=== PATIENT | male | born 1985 | race Caucasian/White ===

== ENCOUNTER → 2019-09-14 16:27 | Outpatient (CLI) | payer OTHER, SELFPAY ==
[2019-09-14 16:42] LABS: Bacteria Urine None Seen
[2019-09-14 17:43] LABS: INR 0.9 (0.9-1.3); Prothrombin Time 10.8 SECONDS (10.1-12.7)
[2019-09-14 18:33] LABS: Appearance Urine UA CLEAR; Bilirubin Urine UA NEGATIVE (NEGATIVE); Color Urine UA YELLOW; Glucose Urine UA NEGATIVE (Negative); Ketones Urine UA NEGATIVE (NEGATIVE); Leukocyte Esterase Urine UA NEGATIVE (NEGATIVE); Nitrite Urine UA NEGATIVE (Negative); Occult Blood Urine UA NEGATIVE (Negative); Protein Urine UA NEGATIVE (Negative); Specific Gravity Urine UA <=1.005 (1.000-1.035); Urobilinogen Urine UA 0.2 E.U./dL (0.2); pH Urine UA 6.5 (4.5-8.0)
[2019-09-14 18:46] LABS: Culture Indicated Urine Cult Not Indicated; RBC Urine 0-1/HPF (0-5/HPF); WBC Urine 0-1/HPF (0-5/HPF)
[2019-09-14 19:06] LABS: Free T4, Direct Thyroxine 1.44 ng/dL (0.78-2.19)
[2019-09-14 19:20] LABS: Thyroid Stimulating Hormone 1.02 uIU/mL (0.47-4.68)
== END ==
PROVIDERS: PCP Naturopath; Referring Provider Naturopath; Visit Provider Naturopath
DX: E07.9 Disorder of thyroid, unspecified (principal); G56.00 Carpal tunnel syndrome, unspecified upper limb; R53.83 Other fatigue; R60.1 Generalized edema
CPT/HCPCS: 36415; 81001; 84439; 84443; 85610